=== PATIENT | female | born 1935 | race Caucasian/White ===

== ENCOUNTER 2016-08-01 21:28 | Observation (INO) | payer MEDICARE, OTHER ==
[~2016-08-01 21:28] MED LIST: ADVAIR 250-501 EACH INH; AGGRENOX 25 MG1 EACH PO; ALBUTEROL2.5 MG/3 M IH; ASPIRIN81 MG PO; AVAPRO300 MG PO; CALCIUM 600 +1 EAC7 PO; CALCIUM 600 +1 EAC9 PO; COLACE100 MG PO; DUONEB 2.5-0.5MG3 ML NEB; FLANDERS BUTTO113 GM TOP; JANUVIA100 MG PO; LASIX40 MG PO; LEVAQUIN500 MG PO; LEVAQUIN750 MG PO; METFORMIN HCL1000 MG PO; METOPROLOL TART50 MG PO; MYCOSTATIN CREA15 GM EXT; NEXIUM40 MG PO; NORVASC10 MG PO; NOVOLIN 701 UNIT/0.0 SC; PLAVIX75 MG PO; PRAVASTATIN SOD10 MG PO; PREDNISONE10 MG PO; SYNTHROID50 MCG PO
== END 2016-08-03 11:22 | disposition other institution (70) ==
LOC: ER 21:28 → MS 23:59 → ER 08-02 08:30 → MS 08-02 08:30
PROVIDERS: ADMIT Family Medicine
DX: N39.0 Urinary tract infection, site not specified (principal); B96.20 Unspecified Escherichia coli [E. coli] as the cause of diseases classified elsewhere; R41.82 Altered mental status, unspecified; E11.9 Type 2 diabetes mellitus without complications; J44.9 Chronic obstructive pulmonary disease, unspecified; Z86.73 Personal history of transient ischemic attack (TIA), and cerebral infarction without residual deficits; I10 Essential (primary) hypertension; Z95.5 Presence of coronary angioplasty implant and graft; Z90.710 Acquired absence of both cervix and uterus; Z98.890 Other specified postprocedural states; J96.01 Acute respiratory failure with hypoxia; Z88.5 Allergy status to narcotic agent; Z79.899 Other long term (current) drug therapy; Z79.82 Long term (current) use of aspirin; Z79.02 Long term (current) use of antithrombotics/antiplatelets; Z79.4 Long term (current) use of insulin
CPT/HCPCS: 36415; 51702; 80048; 80061; 82962; 83605; 83880; 85025; 94640; 94664; 96360; 96361; 96372; 99070; 99284; 99284-25; G0378

== ENCOUNTER 2016-08-01 21:28 | Inpatient (IN) | payer MEDICARE, OTHER ==
[2016-08-01 22:08] LABS: BASO % 0.3 % (0.1-1.2); EOS # 0.1 10_X3_uL (0.0-0.4); EOS % 0.6 % (0.7-5.8); GRAN # 6.5 10_X3_uL (1.6-6.1); GRAN % 70.2 % (34.0-71.1); HEMATOCRIT 42.2 % (34-45); HEMOGLOBIN 13.6 g/dL (11.2-15.7); LYMPH # 1.2 10_X3_uL (1.2-3.7); LYMPH % 12.7 % (19.3-51.7); MEAN CORPUSCULAR HEMOGLOBIN 27.1 pg (27.0-33.0); MEAN CORPUSCULAR HGB CONC 32.2 g/dL (32.0-36.0); MEAN CORPUSCULAR VOLUME 84.1 fL (79-95); MEAN PLATELET VOLUME 9.8 fl (7.5-11.5); MONO # 1.5 10_X3_uL (0.2-0.9); MONO % 16.2 % (4.7-12.5); PLATELET COUNT 262 x10_3/uL (182-369); RED BLOOD COUNT 5.02 x10_6/uL (3.9-5.2); RED CELL DISTRIBUTION WIDTH 15.9 % (11.7-14.4); WHITE BLOOD COUNT 9.3 x10_3/uL (4.0-10.0)
[2016-08-01 22:25] LABS: ALBUMIN 3.6 gm/dL (3.4-5.0); ALKALINE PHOSPHATASE 77 U/L (50-136); ALT/SGPT 13 U/L (3.5-33.9); AST/SGOT 11 U/L (7.04-26.96); BILIRUBIN,TOTAL 0.28 mg/dL (0.0-1.0); BLOOD UREA NITROGEN 17 mg/dL (7-18); CALCIUM 10.3 mg/dL (8.7-10.7); CARBON DIOXIDE 28 mmol/L (21-32); CREATININE 0.6 mg/dL (0.6-1.3); GLUCOSE,RANDOM 260 mg/dL (70-99); SODIUM 142 mmol/L (136-145); TOTAL PROTEIN 6.3 gm/dL (6.4-8.2)
[2016-08-01 22:26] LABS: URINE GLUCOSE (UA) 1000 mg/dL (NORMAL)
[2016-08-01 22:27] LABS: URINE BILIRUBIN NEGATIVE (NEGATIVE); URINE BLOOD 1+ (NEGATIVE); URINE KETONE NEGATIVE (NEGATIVE); URINE LEUKOCYTE ESTERASE 2+ (NEGATIVE); URINE NITRATE NEGATIVE (NEGATIVE); URINE PROTEIN 2+ (NEGATIVE); URINE SQUAMOUS EPITHELIAL CELL 0-10 /[HPF] (NONE SEEN); URINE WBC >15 /[HPF] (0-5); UROBILINOGEN NORMAL mg/dL (<1.0)
[2016-08-01 22:28] LABS: URINE BACTERIA 2+ (NONE SEEN); URINE RBC 0-5 /[HPF] (0-2)
[2016-08-02 07:33] LABS: BASO % 0.3 % (0.1-1.2); EOS % 0.5 % (0.7-5.8); GRAN # 4.9 10_X3_uL (1.6-6.1); GRAN % 64.8 % (34.0-71.1); HEMATOCRIT 40.5 % (34-45); HEMOGLOBIN 12.8 g/dL (11.2-15.7); LYMPH # 1.4 10_X3_uL (1.2-3.7); LYMPH % 18.2 % (19.3-51.7); MEAN CORPUSCULAR HEMOGLOBIN 26.7 pg (27.0-33.0); MEAN CORPUSCULAR HGB CONC 31.6 g/dL (32.0-36.0); MEAN CORPUSCULAR VOLUME 84.4 fL (79-95); MEAN PLATELET VOLUME 10.1 fl (7.5-11.5); MONO # 1.2 10_X3_uL (0.2-0.9); MONO % 16.2 % (4.7-12.5); PLATELET COUNT 241 x10_3/uL (182-369); RED CELL DISTRIBUTION WIDTH 15.8 % (11.7-14.4); WHITE BLOOD COUNT 7.5 x10_3/uL (4.0-10.0)
[2016-08-02 07:49] LABS: AHDL CHOLESTEROL 42 mg/dL (>40); BLOOD UREA NITROGEN 13 mg/dL (7-18); CALCIUM 9.7 mg/dL (8.7-10.7); CARBON DIOXIDE 30 mmol/L (21-32); CHOLESTEROL 82 mg/dL (0-200); CREATININE 0.5 mg/dL (0.6-1.3); GLUCOSE,RANDOM 117 mg/dL (70-99); LDL CHOLESTEROL 26 mg/dL (0-99); POTASSIUM 3.6 mmol/L (3.5-5.1); SODIUM 143 mmol/L (136-145); TRIGLYCERIDES 126 mg/dL (30-200)
[2016-08-03 06:46] LABS: ALBUMIN 3.5 gm/dL (3.4-5.0); ALKALINE PHOSPHATASE 75 U/L (50-136); ALT/SGPT 13 U/L (3.5-33.9); AST/SGOT 13 U/L (7.04-26.96); BILIRUBIN,TOTAL 0.31 mg/dL (0.0-1.0); BLOOD UREA NITROGEN 9 mg/dL (7-18); CARBON DIOXIDE 30 mmol/L (21-32); CREATININE 0.5 mg/dL (0.6-1.3); GLUCOSE,RANDOM 138 mg/dL (70-99); POTASSIUM 3.9 mmol/L (3.5-5.1); SODIUM 142 mmol/L (136-145); TOTAL PROTEIN 6.1 gm/dL (6.4-8.2)
[2016-08-03 07:03] LABS: HEMATOCRIT 41.1 % (34-45); HEMOGLOBIN 13.1 g/dL (11.2-15.7); MEAN CORPUSCULAR HEMOGLOBIN 26.9 pg (27.0-33.0); MEAN CORPUSCULAR HGB CONC 31.9 g/dL (32.0-36.0); MEAN CORPUSCULAR VOLUME 84.4 fL (79-95); MEAN PLATELET VOLUME 9.8 fl (7.5-11.5); RED BLOOD COUNT 4.87 x10_6/uL (3.9-5.2); RED CELL DISTRIBUTION WIDTH 15.3 % (11.7-14.4); WHITE BLOOD COUNT 6.8 x10_3/uL (4.0-10.0)
[2016-08-03 12:33] LABS: ARTERIAL BLD GAS O2 SATURATION 92.3 % (94-98); ARTERIAL BLOOD GAS BASE EXCESS 5.4 mmol/L (-2.0-3.0); ARTERIAL BLOOD GAS HCO3 31.2 mmol/L (22-26); ARTERIAL BLOOD GAS PCO2 52.8 mmHg (32-45); ARTERIAL BLOOD GAS pH 7.39 (7.35-7.45)
[2016-08-03 16:06] LABS: CALCIUM 9.9 mg/dL (8.7-10.7)
[2016-08-04 06:29] LABS: HEMATOCRIT 41.2 % (34-45); HEMOGLOBIN 13.2 g/dL (11.2-15.7); MEAN CORPUSCULAR VOLUME 84.3 fL (79-95); MEAN PLATELET VOLUME 9.8 fl (7.5-11.5); RED BLOOD COUNT 4.89 x10_6/uL (3.9-5.2); RED CELL DISTRIBUTION WIDTH 15.2 % (11.7-14.4); WHITE BLOOD COUNT 7.5 x10_3/uL (4.0-10.0)
[2016-08-04 06:51] LABS: ALBUMIN 3.3 gm/dL (3.4-5.0); ALKALINE PHOSPHATASE 73 U/L (50-136); ALT/SGPT 14 U/L (3.5-33.9); AST/SGOT 14 U/L (7.04-26.96); BILIRUBIN,TOTAL 0.29 mg/dL (0.0-1.0); BLOOD UREA NITROGEN 11 mg/dL (7-18); CALCIUM 10.6 mg/dL (8.7-10.7); CARBON DIOXIDE 31 mmol/L (21-32); CREATININE 0.6 mg/dL (0.6-1.3); GLUCOSE,RANDOM 107 mg/dL (70-99); POTASSIUM 3.8 mmol/L (3.5-5.1); SODIUM 141 mmol/L (136-145); TOTAL PROTEIN 6.3 gm/dL (6.4-8.2)
[2016-08-06 07:19] LABS: HEMATOCRIT 42.7 % (34-45); HEMOGLOBIN 13.2 g/dL (11.2-15.7); MEAN CORPUSCULAR HEMOGLOBIN 26.6 pg (27.0-33.0); MEAN CORPUSCULAR HGB CONC 30.9 g/dL (32.0-36.0); MEAN CORPUSCULAR VOLUME 85.9 fL (79-95); MEAN PLATELET VOLUME 10.3 fl (7.5-11.5); RED BLOOD COUNT 4.97 x10_6/uL (3.9-5.2); RED CELL DISTRIBUTION WIDTH 14.9 % (11.7-14.4); WHITE BLOOD COUNT 6.8 x10_3/uL (4.0-10.0)
[2016-08-06 07:34] LABS: BLOOD UREA NITROGEN 14 mg/dL (7-18); CALCIUM 10.3 mg/dL (8.7-10.7); CARBON DIOXIDE 30 mmol/L (21-32); CREATININE 0.6 mg/dL (0.6-1.3); GLUCOSE,RANDOM 233 mg/dL (70-99); POTASSIUM 4.2 mmol/L (3.5-5.1); SODIUM 140 mmol/L (136-145)
[2016-08-06 17:00] LABS: URINE BILIRUBIN NEGATIVE (NEGATIVE); URINE BLOOD 2+ (NEGATIVE); URINE GLUCOSE (UA) 100 mg/dL (NORMAL); URINE KETONE NEGATIVE (NEGATIVE); URINE LEUKOCYTE ESTERASE 2+ (NEGATIVE); URINE NITRATE NEGATIVE (NEGATIVE); URINE PROTEIN 1+ (NEGATIVE); UROBILINOGEN NORMAL mg/dL (<1.0)
[2016-08-06 17:35] LABS: URINE BACTERIA 1+ (NONE SEEN); URINE WBC >15 /[HPF] (0-5)
[2016-08-07 06:54] LABS: MEAN CORPUSCULAR HEMOGLOBIN 26.7 pg (27.0-33.0); MEAN CORPUSCULAR VOLUME 86.2 fL (79-95); MEAN PLATELET VOLUME 10.1 fl (7.5-11.5); RED BLOOD COUNT 4.87 x10_6/uL (3.9-5.2); RED CELL DISTRIBUTION WIDTH 14.8 % (11.7-14.4); WHITE BLOOD COUNT 6.5 x10_3/uL (4.0-10.0)
[2016-08-07 07:25] LABS: ALBUMIN 3.6 gm/dL (3.4-5.0); ALKALINE PHOSPHATASE 69 U/L (50-136); ALT/SGPT 15 U/L (3.5-33.9); AST/SGOT 12 U/L (7.04-26.96); BILIRUBIN,TOTAL 0.27 mg/dL (0.0-1.0); CALCIUM 10.3 mg/dL (8.7-10.7); CARBON DIOXIDE 29 mmol/L (21-32); CREATININE 0.8 mg/dL (0.6-1.3); GLUCOSE,RANDOM 208 mg/dL (70-99); POTASSIUM 4.3 mmol/L (3.5-5.1); SODIUM 140 mmol/L (136-145); TOTAL PROTEIN 6.2 gm/dL (6.4-8.2)
[2016-08-07 08:03] LABS: BLOOD UREA NITROGEN 19 mg/dL (7-18)
[2016-08-08 06:53] LABS: ALBUMIN 3.6 gm/dL (3.4-5.0); ALKALINE PHOSPHATASE 68 U/L (50-136); ALT/SGPT 18 U/L (3.5-33.9); AST/SGOT 16 U/L (7.04-26.96); BLOOD UREA NITROGEN 22 mg/dL (7-18); CALCIUM 10.2 mg/dL (8.7-10.7); CARBON DIOXIDE 31 mmol/L (21-32); CREATININE 0.8 mg/dL (0.6-1.3); GLUCOSE,RANDOM 132 mg/dL (70-99); POTASSIUM 4.6 mmol/L (3.5-5.1); SODIUM 141 mmol/L (136-145); TOTAL PROTEIN 6.3 gm/dL (6.4-8.2)
[2016-08-08 07:05] LABS: HEMATOCRIT 41.2 % (34-45); HEMOGLOBIN 12.9 g/dL (11.2-15.7); MEAN CORPUSCULAR HEMOGLOBIN 26.8 pg (27.0-33.0); MEAN CORPUSCULAR HGB CONC 31.3 g/dL (32.0-36.0); MEAN CORPUSCULAR VOLUME 85.5 fL (79-95); MEAN PLATELET VOLUME 10.2 fl (7.5-11.5); RED BLOOD COUNT 4.82 x10_6/uL (3.9-5.2); RED CELL DISTRIBUTION WIDTH 14.7 % (11.7-14.4); WHITE BLOOD COUNT 7.3 x10_3/uL (4.0-10.0)
[2016-08-10 07:02] LABS: HEMATOCRIT 40.7 % (34-45); HEMOGLOBIN 13.1 g/dL (11.2-15.7); MEAN CORPUSCULAR HEMOGLOBIN 27.2 pg (27.0-33.0); MEAN CORPUSCULAR HGB CONC 32.2 g/dL (32.0-36.0); MEAN CORPUSCULAR VOLUME 84.6 fL (79-95); MEAN PLATELET VOLUME 9.9 fl (7.5-11.5); RED BLOOD COUNT 4.81 x10_6/uL (3.9-5.2); RED CELL DISTRIBUTION WIDTH 14.6 % (11.7-14.4); WHITE BLOOD COUNT 5.8 x10_3/uL (4.0-10.0)
[2016-08-10 07:17] LABS: BLOOD UREA NITROGEN 22 mg/dL (7-18); CALCIUM 10.9 mg/dL (8.7-10.7); CARBON DIOXIDE 30 mmol/L (21-32); CREATININE 0.9 mg/dL (0.6-1.3); GLUCOSE,RANDOM 136 mg/dL (70-99); POTASSIUM 4.7 mmol/L (3.5-5.1); SODIUM 139 mmol/L (136-145)
== END 2016-08-10 10:30 | disposition home or self-care (01) | DRG 193 ==
LOC: ER 21:28 → MS 23:41 → ER 23:41 → MS 23:41
PROVIDERS: Emergency Medicine; Family Medicine; ADMIT Family Medicine
DX: J18.9 Pneumonia, unspecified organism (principal); J96.01 Acute respiratory failure with hypoxia; N39.0 Urinary tract infection, site not specified; J90 Pleural effusion, not elsewhere classified; R78.81 Bacteremia; B96.20 Unspecified Escherichia coli [E. coli] as the cause of diseases classified elsewhere; J40 Bronchitis, not specified as acute or chronic; R41.82 Altered mental status, unspecified; E11.9 Type 2 diabetes mellitus without complications; I10 Essential (primary) hypertension; I25.10 Atherosclerotic heart disease of native coronary artery without angina pectoris; E03.9 Hypothyroidism, unspecified; R10.30 Lower abdominal pain, unspecified; K44.9 Diaphragmatic hernia without obstruction or gangrene; B95.2 Enterococcus as the cause of diseases classified elsewhere; B95.8 Unspecified staphylococcus as the cause of diseases classified elsewhere; Z16.21 Resistance to vancomycin; K59.00 Constipation, unspecified; E78.5 Hyperlipidemia, unspecified; R11.0 Nausea; R19.7 Diarrhea, unspecified; Z88.5 Allergy status to narcotic agent; Z79.4 Long term (current) use of insulin; Z79.02 Long term (current) use of antithrombotics/antiplatelets; Z79.899 Other long term (current) drug therapy; Z79.82 Long term (current) use of aspirin
CPT/HCPCS: 36415; 36600; 51702; 71010; 71250; 80048; 80053; 80061; 81001; 82803; 82962; 83036; 83605; 83880; 84443; 85025; 87040; 87086; 87186; 87400; 94640; 94664; 96374; 99070; 99284; 99284-25; G0378; J7050

== ENCOUNTER 2016-08-13 14:55 | Inpatient (IN) | payer MEDICARE, OTHER ==
[2016-08-13 15:56] LABS: BASO % 0.6 % (0.1-1.2); EOS % 0.5 % (0.7-5.8); GRAN # 3.8 10_X3_uL (1.6-6.1); GRAN % 58.6 % (34.0-71.1); HEMOGLOBIN 13.4 g/dL (11.2-15.7); LYMPH % 14.6 % (19.3-51.7); MEAN CORPUSCULAR HEMOGLOBIN 26.7 pg (27.0-33.0); MEAN CORPUSCULAR HGB CONC 31.2 g/dL (32.0-36.0); MEAN CORPUSCULAR VOLUME 85.8 fL (79-95); MEAN PLATELET VOLUME 9.8 fl (7.5-11.5); MONO # 1.7 10_X3_uL (0.2-0.9); MONO % 25.7 % (4.7-12.5); PLATELET COUNT 268 x10_3/uL (182-369); RED BLOOD COUNT 5.01 x10_6/uL (3.9-5.2); RED CELL DISTRIBUTION WIDTH 15.1 % (11.7-14.4); WHITE BLOOD COUNT 6.5 x10_3/uL (4.0-10.0)
[2016-08-13 16:12] LABS: ALBUMIN 3.6 gm/dL (3.4-5.0); BILIRUBIN,TOTAL 0.17 mg/dL (0.0-1.0); CALCIUM 10.4 mg/dL (8.7-10.7); TOTAL PROTEIN 6.4 gm/dL (6.4-8.2)
[2016-08-13 16:18] LABS: POTASSIUM 5.3 mmol/L (3.5-5.1)
[2016-08-13 16:30] LABS: URINE BILIRUBIN NEGATIVE (NEGATIVE); URINE BLOOD TRACE (NEGATIVE); URINE GLUCOSE (UA) NORMAL (NORMAL); URINE KETONE NEGATIVE (NEGATIVE); URINE LEUKOCYTE ESTERASE 2+ (NEGATIVE); URINE NITRATE NEGATIVE (NEGATIVE); URINE PROTEIN 1+ (NEGATIVE); UROBILINOGEN NORMAL mg/dL (<1.0)
[2016-08-13 16:53] LABS: URINE AMORPHOUS SEDIMENT 1+; URINE SQUAMOUS EPITHELIAL CELL 0-10 /[HPF] (NONE SEEN); URINE WBC >15 /[HPF] (0-5)
[2016-08-13 16:54] LABS: URINE BACTERIA 1+ (NONE SEEN)
[2016-08-14 07:29] LABS: BLOOD UREA NITROGEN 15 mg/dL (7-18); CALCIUM 9.7 mg/dL (8.7-10.7); CARBON DIOXIDE 25 mmol/L (21-32); CREATININE 0.9 mg/dL (0.6-1.3); GLUCOSE,RANDOM 122 mg/dL (70-99); POTASSIUM 4.7 mmol/L (3.5-5.1); SODIUM 137 mmol/L (136-145)
[2016-08-15 07:27] LABS: HEMATOCRIT 41.8 % (34-45); HEMOGLOBIN 13.2 g/dL (11.2-15.7); MEAN CORPUSCULAR HEMOGLOBIN 26.8 pg (27.0-33.0); MEAN CORPUSCULAR HGB CONC 31.6 g/dL (32.0-36.0); MEAN PLATELET VOLUME 10.1 fl (7.5-11.5); RED BLOOD COUNT 4.92 x10_6/uL (3.9-5.2); RED CELL DISTRIBUTION WIDTH 14.9 % (11.7-14.4); WHITE BLOOD COUNT 3.8 x10_3/uL (4.0-10.0)
[2016-08-15 07:50] LABS: ALBUMIN 3.6 gm/dL (3.4-5.0); ALKALINE PHOSPHATASE 65 U/L (50-136); ALT/SGPT 25 U/L (3.5-33.9); AST/SGOT 23 U/L (7.04-26.96); BILIRUBIN,TOTAL 0.22 mg/dL (0.0-1.0); BLOOD UREA NITROGEN 14 mg/dL (7-18); CALCIUM 9.4 mg/dL (8.7-10.7); CARBON DIOXIDE 26 mmol/L (21-32); CREATININE 0.8 mg/dL (0.6-1.3); GLUCOSE,RANDOM 113 mg/dL (70-99); POTASSIUM 4.3 mmol/L (3.5-5.1); SODIUM 137 mmol/L (136-145); TOTAL PROTEIN 6.6 gm/dL (6.4-8.2)
[2016-08-16 07:39] LABS: HEMATOCRIT 42.5 % (34-45); HEMOGLOBIN 13.3 g/dL (11.2-15.7); MEAN CORPUSCULAR HEMOGLOBIN 26.7 pg (27.0-33.0); MEAN CORPUSCULAR HGB CONC 31.3 g/dL (32.0-36.0); MEAN CORPUSCULAR VOLUME 85.2 fL (79-95); MEAN PLATELET VOLUME 9.9 fl (7.5-11.5); RED BLOOD COUNT 4.99 x10_6/uL (3.9-5.2); WHITE BLOOD COUNT 2.7 x10_3/uL (4.0-10.0)
[2016-08-16 07:52] LABS: BLOOD UREA NITROGEN 15 mg/dL (7-18); CALCIUM 9.3 mg/dL (8.7-10.7); CARBON DIOXIDE 27 mmol/L (21-32); CREATININE 0.7 mg/dL (0.6-1.3); GLUCOSE,RANDOM 123 mg/dL (70-99); SODIUM 139 mmol/L (136-145)
[2016-08-17 07:31] LABS: HEMATOCRIT 41.3 % (34-45); HEMOGLOBIN 13.1 g/dL (11.2-15.7); MEAN CORPUSCULAR HEMOGLOBIN 26.8 pg (27.0-33.0); MEAN CORPUSCULAR HGB CONC 31.7 g/dL (32.0-36.0); MEAN CORPUSCULAR VOLUME 84.5 fL (79-95); MEAN PLATELET VOLUME 10.1 fl (7.5-11.5); RED BLOOD COUNT 4.89 x10_6/uL (3.9-5.2); RED CELL DISTRIBUTION WIDTH 14.8 % (11.7-14.4)
[2016-08-17 07:35] LABS: WHITE BLOOD COUNT 2.5 x10_3/uL (4.0-10.0)
[2016-08-17 07:44] LABS: BLOOD UREA NITROGEN 12 mg/dL (7-18); CALCIUM 8.9 mg/dL (8.7-10.7); CARBON DIOXIDE 28 mmol/L (21-32); CREATININE 0.6 mg/dL (0.6-1.3); GLUCOSE,RANDOM 149 mg/dL (70-99); POTASSIUM 3.9 mmol/L (3.5-5.1); SODIUM 141 mmol/L (136-145)
== END 2016-08-17 13:59 | disposition swing bed (61) | DRG 690 ==
LOC: ER 14:55 → MS 17:05 → UNDODEPER 08-16 17:43 → MS 08-17 13:59
PROVIDERS: Internal Medicine; ADMIT Family Medicine
DX: N39.0 Urinary tract infection, site not specified (principal); I69.354 Hemiplegia and hemiparesis following cerebral infarction affecting left non-dominant side; B95.2 Enterococcus as the cause of diseases classified elsewhere; J10.1 Influenza due to other identified influenza virus with other respiratory manifestations; R53.1 Weakness; I10 Essential (primary) hypertension; E11.9 Type 2 diabetes mellitus without complications; I25.10 Atherosclerotic heart disease of native coronary artery without angina pectoris; Z95.5 Presence of coronary angioplasty implant and graft; Z90.49 Acquired absence of other specified parts of digestive tract; Z90.710 Acquired absence of both cervix and uterus; Z98.890 Other specified postprocedural states; Z79.899 Other long term (current) drug therapy; Z79.82 Long term (current) use of aspirin; Z88.5 Allergy status to narcotic agent; Z99.3 Dependence on wheelchair; Z79.02 Long term (current) use of antithrombotics/antiplatelets; Z79.4 Long term (current) use of insulin; M62.50 Muscle wasting and atrophy, not elsewhere classified, unspecified site
CPT/HCPCS: 36415; 71010; 71250; 80048; 80053; 81001; 82550; 82553; 82962; 83605; 83880; 85025; 87086; 87186; 87324; 87400; 93005; 94640; 94664; 96374; 99070; 99284; 99284-25; J7040

== ENCOUNTER 2016-08-13 14:55 | Emergency (ER) | payer MEDICARE, OTHER | END 2016-08-13 17:05 | disposition other institution (70) | LOC: ER 14:55 | DX: N39.0 Urinary tract infection, site not specified (principal); R53.1 Weakness; R11.0 Nausea; R05 Cough; I11.0 Hypertensive heart disease with heart failure; I50.9 Heart failure, unspecified; E11.9 Type 2 diabetes mellitus without complications; Z95.5 Presence of coronary angioplasty implant and graft; Z90.710 Acquired absence of both cervix and uterus; Z88.5 Allergy status to narcotic agent | CPT/HCPCS: 99284; 99284-25 ==

== ENCOUNTER 2016-08-17 14:42 | Inpatient (IN) | payer MEDICARE, OTHER ==
[~2016-08-17] VITALS: Ht 162.6 cm; Wt 99.0 kg
[2016-08-19 07:09] LABS: HEMOGLOBIN 13.7 g/dL (11.2-15.7); MEAN CORPUSCULAR HEMOGLOBIN 26.8 pg (27.0-33.0); MEAN CORPUSCULAR HGB CONC 31.9 g/dL (32.0-36.0); MEAN CORPUSCULAR VOLUME 84.1 fL (79-95); MEAN PLATELET VOLUME 10.2 fl (7.5-11.5); RED BLOOD COUNT 5.11 x10_6/uL (3.9-5.2); RED CELL DISTRIBUTION WIDTH 14.6 % (11.7-14.4)
[2016-08-19 07:17] LABS: BLOOD UREA NITROGEN 11 mg/dL (7-18); CALCIUM 9.8 mg/dL (8.7-10.7); CARBON DIOXIDE 28 mmol/L (21-32); CREATININE 0.6 mg/dL (0.6-1.3); GLUCOSE,RANDOM 102 mg/dL (70-99); POTASSIUM 3.4 mmol/L (3.5-5.1); SODIUM 141 mmol/L (136-145)
[2016-08-20 06:51] LABS: CALCIUM 10.2 mg/dL (8.7-10.7); CARBON DIOXIDE 27 mmol/L (21-32); CREATININE 0.8 mg/dL (0.6-1.3); GLUCOSE,RANDOM 138 mg/dL (70-99); MAGNESIUM 1.4 mg/dL (1.8-2.4); POTASSIUM 4.9 mmol/L (3.5-5.1); SODIUM 139 mmol/L (136-145)
[2016-08-20 07:19] LABS: BLOOD UREA NITROGEN 19 mg/dL (7-18)
[2016-08-21 07:15] LABS: BLOOD UREA NITROGEN 21 mg/dL (7-18); CALCIUM 10.4 mg/dL (8.7-10.7); CARBON DIOXIDE 30 mmol/L (21-32); CREATININE 0.9 mg/dL (0.6-1.3); GLUCOSE,RANDOM 145 mg/dL (70-99); MAGNESIUM 1.6 mg/dL (1.8-2.4); POTASSIUM 3.6 mmol/L (3.5-5.1); SODIUM 140 mmol/L (136-145)
[2016-08-23 06:40] LABS: HEMATOCRIT 55.1 % (34-45); HEMOGLOBIN 18.1 g/dL (11.2-15.7); MEAN CORPUSCULAR HGB CONC 32.8 g/dL (32.0-36.0); MEAN CORPUSCULAR VOLUME 82.2 fL (79-95); MEAN PLATELET VOLUME 10.5 fl (7.5-11.5); RED BLOOD COUNT 6.7 x10_6/uL (3.9-5.2); RED CELL DISTRIBUTION WIDTH 14.6 % (11.7-14.4); WHITE BLOOD COUNT 5.3 x10_3/uL (4.0-10.0)
[2016-08-23 06:51] LABS: CALCIUM 10.6 mg/dL (8.7-10.7); CREATININE 1.1 mg/dL (0.6-1.3)
[2016-08-26 07:39] LABS: HEMATOCRIT 43.2 % (34-45); HEMOGLOBIN 13.9 g/dL (11.2-15.7); MEAN CORPUSCULAR HEMOGLOBIN 27.3 pg (27.0-33.0); MEAN CORPUSCULAR HGB CONC 32.2 g/dL (32.0-36.0); MEAN CORPUSCULAR VOLUME 84.9 fL (79-95); MEAN PLATELET VOLUME 10.2 fl (7.5-11.5); RED BLOOD COUNT 5.09 x10_6/uL (3.9-5.2); RED CELL DISTRIBUTION WIDTH 14.2 % (11.7-14.4); WHITE BLOOD COUNT 5.9 x10_3/uL (4.0-10.0)
[2016-08-26 07:50] LABS: BLOOD UREA NITROGEN 12 mg/dL (7-18); CALCIUM 10.7 mg/dL (8.7-10.7); CARBON DIOXIDE 31 mmol/L (21-32); CREATININE 0.7 mg/dL (0.6-1.3); GLUCOSE,RANDOM 199 mg/dL (70-99); POTASSIUM 4.2 mmol/L (3.5-5.1); SODIUM 140 mmol/L (136-145)
[2016-08-30 07:25] LABS: HEMOGLOBIN 13.3 g/dL (11.2-15.7); MEAN CORPUSCULAR HGB CONC 31.7 g/dL (32.0-36.0); MEAN CORPUSCULAR VOLUME 85.4 fL (79-95); MEAN PLATELET VOLUME 10.5 fl (7.5-11.5); RED BLOOD COUNT 4.92 x10_6/uL (3.9-5.2); RED CELL DISTRIBUTION WIDTH 14.8 % (11.7-14.4)
[2016-08-30 07:38] LABS: BLOOD UREA NITROGEN 21 mg/dL (7-18); CALCIUM 10.8 mg/dL (8.7-10.7); CARBON DIOXIDE 29 mmol/L (21-32); CREATININE 0.9 mg/dL (0.6-1.3); GLUCOSE,RANDOM 216 mg/dL (70-99); POTASSIUM 4.2 mmol/L (3.5-5.1); SODIUM 140 mmol/L (136-145)
== END 2016-08-30 13:25 | disposition home or self-care (01) | DRG 557 ==
LOC: SWING 14:42
PROVIDERS: Family Medicine; ADMIT Family Medicine
DX: M62.50 Muscle wasting and atrophy, not elsewhere classified, unspecified site (principal); J18.9 Pneumonia, unspecified organism; N39.0 Urinary tract infection, site not specified; I69.852 Hemiplegia and hemiparesis following other cerebrovascular disease affecting left dominant side; B95.2 Enterococcus as the cause of diseases classified elsewhere; J10.1 Influenza due to other identified influenza virus with other respiratory manifestations; J40 Bronchitis, not specified as acute or chronic; Z79.2 Long term (current) use of antibiotics; I10 Essential (primary) hypertension; I51.9 Heart disease, unspecified; Z99.3 Dependence on wheelchair; I25.10 Atherosclerotic heart disease of native coronary artery without angina pectoris; Z95.5 Presence of coronary angioplasty implant and graft; Z90.49 Acquired absence of other specified parts of digestive tract; Z98.890 Other specified postprocedural states; Z90.710 Acquired absence of both cervix and uterus; E87.6 Hypokalemia; R11.0 Nausea; Z79.899 Other long term (current) drug therapy; Z79.02 Long term (current) use of antithrombotics/antiplatelets; Z79.82 Long term (current) use of aspirin; Z79.4 Long term (current) use of insulin; Z51.89 Encounter for other specified aftercare; Z88.5 Allergy status to narcotic agent
CPT/HCPCS: 36415; 71250; 80048; 82962; 83735; 87045; 87324; 94640; 97110; 97530